=== PATIENT | female | born 1970 | race Caucasian/White ===

== ENCOUNTER 2016-07-27 09:45 | Emergency (ER) | payer BC, OTHER ==
[2016-07-27 10:25] VITALS: BP 140/77
--- NOTE | 2016-07-27 10:44 | UC ---
Respiratory Complaint HPI - HPI Summary HPI Summary: Patient has had a cough for 10 days, denies any other symptoms at this time. - History of Current Complaint Chief Complaint: UCRespiratory Stated Complaint: COUGHING Time Seen by Provider: 07/27/16 10:33 Hx Obtained From: Patient ?: No Onset/Duration: Sudden Onset, Lasting Days Timing: Constant Severity Initially: Mild Severity Currently: Mild Pain Intensity: 3 Pain Scale Used: 0-10 Numeric Character: Cough: Nonproductive Aggravating Factors: Deep Breaths, Recumbent Position Alleviating Factors: Nothing - Allergies/Home Medications Allergies/Adverse Reactions: Allergies Allergy/AdvReac Type Severity Reaction Status Date / Time Penicillins [PCN] Allergy Unknown Unknown Verified 05/04/13 22:19 Reaction Details PMH/Surg Hx/FS Hx/Imm Hx Previously Healthy: Yes Endocrine History Of: Denies: Diabetes, Thyroid Disease Cardiovascular History Of: Denies: Cardiac Disorders, Hypertension, Pacemaker/ICD, Congestive Heart Failure, Deep Vein Thrombosis Respiratory History Of: Denies: COPD, Asthma, Pneumonia, Pulmonary Embolism GI/ History Of: Denies: Gastroesophageal Reflux, Ulcer, Gastrointestinal Bleed, Gall Bladder Disease, Kidney Stones, Renal Disease Neurological History Of: Denies: TIA, CVA, Dementia, Seizures, Migraine Psychological History Of: Reports: Anxiety, Depression, Bipolar Disorder Denies: Schizophrenia Cancer History Of: Denies: Lung Cancer, Breast Cancer Other History Of: Negative For: Anticoagulant Therapy - Surgical History Surgical History: Yes Surgery Procedure, Year, and Place: WISDOM TEETH - Family History Known Family History: Positive: Hypertension - Social History Alcohol Use: Rare Substance Use Type: None Smoking Status (MU): Heavy Every Day Tobacco Smoker - Immunization History Most Recent Tetanus Shot: 2009 Review of Systems Constitutional: Negative Skin: Negative Eyes: Negative ENT: Negative Respiratory: Cough Cardiovascular: Negative Gastrointestinal: Negative Genitourinary: Negative Motor: Negative Neurovascular: Negative Musculoskeletal: Negative Neurological: Negative Psychological: Negative All Other Systems Reviewed And Are Negative: Yes Physical Exam Triage Information Reviewed: Yes Appearance: No Pain Distress, Well-Nourished, Pain Distress Vital Signs: Initial Vital Signs Temp 97.7 F 07/27/16 10:22 Pulse 66 07/27/16 10:22 Resp 18 07/27/16 10:22 BP 140/77 07/27/16 10:22 Pulse Ox 100 07/27/16 10:22 Vital Signs Reviewed: Yes Eye Exam: Normal Eyes: Positive: Conjunctiva Clear ENT Exam: Normal ENT: Positive: Pharyngeal erythema, TMs normal, Muffled/hoarse voice Dental Exam: Normal Neck exam: Normal Respiratory Exam: Normal Respiratory: Positive: Chest non-tender, Normal breath sounds, No respiratory distress, No accessory muscle use, Wheezing, Inspiration Abdominal Exam: Normal Abdomen Description: Positive: Nontender, No Organomegaly, Soft Bowel Sounds: Positive: Present Musculoskeletal Exam: Normal Musculoskeletal: Positive: Strength Intact, ROM Intact, No Edema Neurological Exam: Normal Neurological: Positive: Alert, Muscle Tone Normal Psychological Exam: Normal Skin Exam: Normal UC Diagnostic Evaluation - Laboratory O2 Sat by Pulse Oximetry: 100 Respiratory Course/Dx - Course Course Of Treatment: hx obtained, exam performed, medications reviewed, pharyngeal erythema noted. medications prescribed. - Differential Dx/Diagnosis Differential Diagnosis/HQI/PQRI: Asthma, Bronchitis, Influenza, Laryngitis, Sinusitis Provider Diagnoses: bronchospasm. pharyngitis Discharge - Discharge Plan Condition: Stable Disposition: HOME Prescriptions: Albuterol HFA INHALER* [Ventolin HFA Inhaler*] 1 - 2 puff INH Q4H PRN #1 mdi PRN Reason: Cough predniSONE TAB* [Deltasone TAB*] 40 mg PO DAILY #10 tab Patient Education Materials: Bronchospasm (ED) Additional Instructions: Take the medications as prescribed, increase your fluid intake and get plenty of rest. Ibuprofen and tylenol as neede for pain or fever.
== END 2016-07-27 11:08 | disposition home or self-care (01) ==
LOC: UCEAST 09:45
DX: J98.01 Acute bronchospasm (principal); J02.9 Acute pharyngitis, unspecified; Z88.0 Allergy status to penicillin; F17.210 Nicotine dependence, cigarettes, uncomplicated
CPT/HCPCS: 99212; G0463

== ENCOUNTER 2016-10-21 08:54 | Emergency (ER) | payer BC ==
[2016-10-21 09:10] VITALS: BP 127/77
--- NOTE | 2016-10-21 09:58 | UC ---
UC General HPI - HPI Summary HPI Summary: The patient comes in today for: 1. Hoarse voice, fatigue, diarrhea, malaise "I just don't feel right": Onset: 1 week ago. Palliative/provocative: throat lozenges have helped. Quality: Fatigue Region: Generalized Severity: 0/10 Time: Constant. Associated symptoms: Sore throat: None. Cough: dry. Rhinitis: None. Other's ill around her: NOne. Body aches: None-- Weakness: Present. Fevers: None. LMP: one year ago. * - History of Current Complaint Chief Complaint: UCGeneralIllness Stated Complaint: VOICE/DIARRHEA,NO ENERGY Time Seen by Provider: 10/21/16 09:52 Hx Obtained From: Patient - Allergy/Home Medications Allergies/Adverse Reactions: Allergies Allergy/AdvReac Type Severity Reaction Status Date / Time Penicillins [PCN] Allergy Unknown Unknown Verified 10/21/16 09:10 Reaction Details PMH/Surg Hx/FS Hx/Imm Hx Previously Healthy: No - Right breast mass--being checked. Endocrine History Of: Denies: Diabetes, Thyroid Disease Cardiovascular History Of: Denies: Cardiac Disorders, Hypertension, Pacemaker/ICD, Myocardial Infarction , Congestive Heart Failure, Atrial Fibrillation, Deep Vein Thrombosis, Bleeding Disorders Respiratory History Of: Denies: COPD, Asthma, Pneumonia, Pulmonary Embolism GI/ History Of: Denies: Gastroesophageal Reflux, Ulcer, Gastrointestinal Bleed, Gall Bladder Disease, Kidney Stones, Diverticulitis, Renal Disease, Urosepsis Neurological History Of: Denies: TIA, CVA, Dementia, Seizures, Migraine Psychological History Of: Reports: Anxiety, Depression, Bipolar Disorder Denies: Schizophrenia, Post Traumatic Stress Disorder Cancer History Of: Denies: Lung Cancer, Colorectal Cancer, Breast Cancer, Prostate Cancer, Cervical Cancer Other History Of: Negative For: HIV, Hepatitis B, Anticoagulant Therapy - Surgical History Surgical History: Yes Surgery Procedure, Year, and Place: WISDOM TEETH - Family History Known Family History: Positive: Hypertension, Diabetes Negative: Cardiac Disease - Social History Occupation: Employed Full-time Alcohol Use: Rare Substance Use Type: None Smoking Status (MU): Heavy Every Day Tobacco Smoker - Immunization History Most Recent Influenza Vaccination: 2016 Most Recent Tetanus Shot: 2009 Review of Systems Constitutional: Negative Skin: Negative Eyes: Negative ENT: Negative Respiratory: Negative Cardiovascular: Negative Gastrointestinal: Negative, Diarrhea - She has had about 1 watery stool over the last 24 hours. Genitourinary: Negative All Other Systems Reviewed And Are Negative: Yes Physical Exam Triage Information Reviewed: Yes Appearance: Well-Appearing, No Pain Distress, Well-Nourished Vital Signs: Initial Vital Signs Temp 97.8 F 10/21/16 09:04 Pulse 85 10/21/16 09:04 Resp 18 10/21/16 09:04 BP 127/77 10/21/16 09:04 Pulse Ox 94 10/21/16 09:04 Vital Signs Reviewed: Yes Eyes: Positive: Conjunctiva Clear. Negative: Discharge ENT: Positive: Normal ENT inspection. Negative: Pharynx normal, Pharyngeal erythema, Nasal congestion, Nasal drainage, TM bulging, TM dull, TM red, Tonsillar swelling, Tonsillar exudate Dental: Negative: Gross Decay/Caries @, Dental Fracture @ Neck: Positive: Supple, Nontender, No Lymphadenopathy. Negative: Nuchal Rigidity Respiratory: Positive: Chest non-tender, Lungs clear, No respiratory distress, No accessory muscle use. Negative: Crackles, Wheezing Cardiovascular: Positive: RRR, No Murmur Abdomen Description: Positive: Nontender, No Organomegaly, Soft. Negative: Distended, Guarding Musculoskeletal: Positive: Strength Intact, ROM Intact Neurological: Positive: Alert, Muscle Tone Normal Psychological: Positive: Age Appropriate Behavior, Consolable Skin: Negative: rashes, breakdown Course/Dx - Course Course Of Treatment: Patient was told that her symptoms suggest a viral infection. She was told of her treatment options. - Differential Dx - Multi-Symptom Provider Diagnoses: Viral syndrome. Viral laryngitis Discharge - Discharge Plan Condition: Stable Disposition: HOME Patient Education Materials: Viral Syndrome (ED) Forms: *Work Release Referrals: Traci Gatica MD [Primary Care Provider] - 1 Week (Please see your primary care provider in a week to see how well you are doing. If you get worse, please be seen sooner in the ER or through us.)
== END 2016-10-21 10:20 | disposition home or self-care (01) ==
LOC: UCEAST 08:54
DX: J04.0 Acute laryngitis (principal); B34.9 Viral infection, unspecified; Z72.0 Tobacco use; Z88.0 Allergy status to penicillin
CPT/HCPCS: 99212; G0463

== ENCOUNTER 2016-10-30 07:26 | Emergency (ER) | payer BC ==
[2016-10-30 07:36] VITALS: BP 135/77
[2016-10-30] MEDS ORDERED: Acetaminophen TAB* 325 MG PO ONE (07:55)
[2016-10-30] MEDS ORDERED: Levalbuterol 0.63MG/3ML NEB INH ONE (07:55)
--- NOTE | 2016-10-30 08:07 | UC ---
Aranza Zuniga Salem, scribed for Kate Ram MD on 10/30/16 at 0753 . Respiratory Complaint HPI - HPI Summary HPI Summary: Patient is a 46 y/o female who presents to the with a fever and cough since 1.5-2 weeks ago. She states she was at the following onset and was diagnosed with laryngitis. viral syndrome - 10/21/16. She states sx never improved, but worsened with time. She reports wheezing since last night, non-productive cough , and a fever of unknown onset. She denies nausea, vomiting, pain in the sinuses, or rashes. She reports a sore throat and states that she received a flu shot this year. Pt also with ear congestion. Pt denies encountering anyone who has been sick, or a PMHx of CAD or respiratory illness. She states she took Naprosyn for the pain. She reports she is on antidepressants and is allergic to Penicillin. Pt has a fever of 100.5 upon examination. PT did not know had fevers at home. No h/o asthma, COPD. Pt has previously been on pred and MDI Pt denies being and reports LMP was 1 year ago. Pt reports Tobacco use, 1ppd, but denies EtOH or substance use. Patients medication reviewed this visit. - History of Current Complaint Chief Complaint: UCRespiratory Stated Complaint: SOB Time Seen by Provider: 10/30/16 07:35 Hx Obtained From: Patient Hx Last Menstrual Period: does not get Onset/Duration: Gradual Onset, Lasting Weeks Timing: Constant Severity Initially: Moderate Severity Currently: Moderate Character: Cough: Nonproductive Aggravating Factors: Nothing Alleviating Factors: Nothing Associated Signs And Symptoms: Positive: Fever, Wheezing - Allergies/Home Medications Allergies/Adverse Reactions: Allergies Allergy/AdvReac Type Severity Reaction Status Date / Time Penicillins [PCN] Allergy Unknown Unknown Verified 10/30/16 07:36 Reaction Details PMH/Surg Hx/FS Hx/Imm Hx Previously Healthy: Yes Endocrine History Of: Denies: Diabetes, Thyroid Disease Cardiovascular History Of: Denies: Cardiac Disorders, Hypertension, Pacemaker/ICD, Myocardial Infarction , Congestive Heart Failure, Atrial Fibrillation, Deep Vein Thrombosis, Bleeding Disorders Respiratory History Of: Denies: COPD, Asthma, Pneumonia, Pulmonary Embolism GI/ History Of: Denies: Gastroesophageal Reflux, Ulcer, Gastrointestinal Bleed, Gall Bladder Disease, Kidney Stones, Diverticulitis, Renal Disease, Urosepsis Neurological History Of: Denies: TIA, CVA, Dementia, Seizures, Migraine Psychological History Of: Reports: Anxiety, Depression, Bipolar Disorder Denies: Schizophrenia, Post Traumatic Stress Disorder Cancer History Of: Denies: Lung Cancer, Colorectal Cancer, Breast Cancer, Prostate Cancer, Cervical Cancer Other History Of: Negative For: HIV, Hepatitis B, Anticoagulant Therapy - Surgical History Surgical History: None Surgery Procedure, Year, and Place: WISDOM TEETH - Family History Known Family History: Positive: Hypertension, Diabetes, Other - [place] - father. Negative: Cardiac Disease - Social History Occupation: Employed Full-time Alcohol Use: Rare Substance Use Type: None Smoking Status (MU): Heavy Every Day Tobacco Smoker - 1ppd. Type: Cigarettes Amount Used/How Often: 1 ppd Cessation Counseling: Patient Advised to Stop - Immunization History Most Recent Influenza Vaccination: 2015 Most Recent Tetanus Shot: 2009 Review of Systems Constitutional: Fever Skin: Negative Eyes: Negative ENT: Sore Throat, Ear Ache, Other - hoarseness Respiratory: Shortness Of Breath, Cough - Non-productive., Other - Wheezing. Cardiovascular: Negative Gastrointestinal: Negative Genitourinary: Negative Motor: Negative Neurovascular: Negative Musculoskeletal: Negative Neurological: Negative Psychological: Negative All Other Systems Reviewed And Are Negative: Yes Physical Exam Triage Information Reviewed: Yes Appearance: Ill-Appearing - laryngitis, coarse cough, audible wheeze - speaking full sentences Vital Signs: Initial Vital Signs Temp 100.5 F 10/30/16 07:33 Pulse 118 10/30/16 07:33 Resp 22 10/30/16 07:33 BP 135/77 10/30/16 07:33 Pulse Ox 95 10/30/16 07:33 Vital Signs Reviewed: Yes Eye Exam: Normal Eyes: Positive: Conjunctiva Clear ENT: Positive: Pharynx normal, Nasal congestion, TM dull - right TM with mild fluid - no erythema, no retraction. Negative: Nasal drainage, Tonsillar swelling, Tonsillar exudate Dental Exam: Normal Neck exam: Normal Neck: Positive: Supple, Nontender, No Lymphadenopathy Respiratory Exam: Normal Respiratory: Positive: Chest non-tender, Wheezing, Other: - coarse cough, diffuse wheeze, left middle lung with rhonci Cardiovascular Exam: Normal Cardiovascular: Positive: RRR, No Murmur Abdominal Exam: Normal Abdomen Description: Positive: Nontender, No Organomegaly, Soft Bowel Sounds: Positive: Present Musculoskeletal Exam: Normal Musculoskeletal: Positive: Strength Intact Neurological Exam: Normal Neurological: Positive: Alert, Muscle Tone Normal Psychological Exam: Normal Psychological: Positive: Normal Response To Family Skin Exam: Normal UC Diagnostic Evaluation - Laboratory O2 Sat by Pulse Oximetry: 95 Diagnostic Studies Comment: CXR IMPRESSION: MINIMAL PATCHY AIRSPACE DISEASE OF THE RIGHT LUNG BASE. RECOMMEND FOLLOW-UP UNTIL. RESOLUTION TO EXCLUDE UNDERLYING PULMONARY PARENCHYMAL PATHOLOGY. - Radiology Radiology Interpretation Completed By: Radiologist - CXR IMPRESSION: see above Re-Evaluation - Re-Evaluation First Eval Change: Improved Comment: Informed pt of imaging results. Wheezing resolved throughout. Slight rhonci on right. Pt states she feels better. REviewed with pt plan of care - christine mcdonough, pred. PCP f/u. secretion hygeine. return precautions. Pt declined work note Respiratory Course/Dx - Course Course Of Treatment: PT presents with ongoing head congestion, now with dry cough, wheeze, and fever. PT has taken Naprosyn, but no other meds for sx Pt does smoke 1ppd. Diff: bronchitis, pna, uri. Will check CXR, neb, antipyretic. anticpate MDEfrain, abbuster, pred. Pt comfortable and in agreement with plan - Differential Dx/Diagnosis Provider Diagnoses: pneumonia Discharge - Discharge Plan Condition: Improved Disposition: HOME Prescriptions: Albuterol HFA INHALER* [Ventolin HFA Inhaler*] 1 - 2 puff INH Q4H PRN #1 mdi PRN Reason: wheeze DOXYcycline CAP(*) [DOXYcycline 100MG CAP(*)] 100 mg PO BID #20 cap Spacer/Aerosol-Holding Chamber [Aerochamber/Flowsignal] 1 mis INH Q4HR #1 mis predniSONE TAB* [Deltasone TAB*] 50 mg PO DAILY #5 tab Patient Education Materials: Community Acquired Pneumonia (ED) Referrals: Traci Gatica MD [Primary Care Provider] - Additional Instructions: - STay well hydrated. Drink plenty of non-alcoholic, non-caffinated beverages - take antibiotics 2 times a day as prescribed - USe inhaler - 2 puffs every 4 hours today, then eveyr 4 hours as needed - Take prednisone once daily x 5 days - Okay to use over the counter medication for cough - After you have been on antibiotics for 2 days - change your toothbrush and your pillowcase. These infections are spread by secrtions - do NOT share eating or drinking utensils - clean items you share with other people such as iphone, computer mouse, TV remote, etc - Alternate ibuprofen (Advil, motrin) 600mg and tylenol eveyry 3 hours for pain or fever. Do NOT take ibuprofen if you are taking Naprosyn - Call your doctor on Tuesday to schedule a follow-up appointment. Call your doctor or return with questions or concerns The documentation as recorded by the Aranza dove Salem accurately reflects the service I personally performed and the decisions made by me, Kate Ram MD.
--- NOTE | 2016-10-30 08:28 | RAD ---
HISTORY: Cough, fever, tobacco use COMPARISONS: April 21, 2012 VIEWS: 2: Frontal dual-energy and lateral views of the chest. FINDINGS: CARDIOMEDIASTINAL SILHOUETTE: The cardiomediastinal silhouette is normal. LUCIA: The lucia are normal. PLEURA: The costophrenic angles are sharp. No pleural abnormalities are noted. LUNG PARENCHYMA: There is minimal patchy alveolar opacification of the right lung base ABDOMEN: The upper abdomen is clear. There is no subphrenic gas. BONES AND SOFT TISSUES: No bone or soft tissue abnormalities are noted. OTHER: None. IMPRESSION: MINIMAL PATCHY AIRSPACE DISEASE OF THE RIGHT LUNG BASE. RECOMMEND FOLLOW-UP UNTIL RESOLUTION TO EXCLUDE UNDERLYING PULMONARY PARENCHYMAL PATHOLOGY.
== END 2016-10-30 08:56 | disposition home or self-care (01) ==
LOC: UCEAST 07:26
DX: J18.9 Pneumonia, unspecified organism (principal); F41.9 Anxiety disorder, unspecified; F33.9 Major depressive disorder, recurrent, unspecified; F17.210 Nicotine dependence, cigarettes, uncomplicated; Z88.0 Allergy status to penicillin
CPT/HCPCS: 71020; 99212; A9270-GY; G0463

== ENCOUNTER 2018-04-28 09:58 | Emergency (ER) | payer BC ==
[2018-04-28 10:20] VITALS: BP 144/83
--- NOTE | 2018-04-28 10:28 | UC ---
Complaint Female HPI - HPI Summary HPI Summary: 47 yo female presents with malodorous urine with a pink hue and bladder pressure over the last 3 days. She has had a UTI in the past and this feels the same. She denies fever, chills, abdominal pain, n/v/d/c. Does have some mild right flank pain. No hx of kidney stone - History Of Current Complaint Chief Complaint: UCGU Stated Complaint: URINARY COMPLAINT Time Seen by Provider: 04/28/18 10:27 Hx Obtained From: Patient Hx Last Menstrual Period: 1 year ago Timing: Constant Severity Initially: Moderate Severity Currently: Moderate Pain Intensity: 7 Pain Scale Used: 0-10 Numeric - Allergies/Home Medications Allergies/Adverse Reactions: Allergies Allergy/AdvReac Type Severity Reaction Status Date / Time Penicillins Allergy Unknown Verified 04/28/18 10:20 Reaction Details PMH/Surg Hx/FS Hx/Imm Hx Psychological History: Schizophrenia Other History Of: Negative For: HIV, Hepatitis B, Anticoagulant Therapy - Surgical History Surgical History: None Surgery Procedure, Year, and Place: WISDOM TEETH - Family History Known Family History: Positive: Hypertension, Diabetes, Other - [place] - father. Negative: Cardiac Disease - Social History Occupation: Employed Full-time Lives: With Family Alcohol Use: Occasionally Substance Use Type: None Smoking Status (MU): Heavy Every Day Tobacco Smoker Type: Cigarettes Amount Used/How Often: 1 ppd Length of Time of Smoking/Using Tobacco: 30 years Have You Smoked in the Last Year: Yes - Immunization History Most Recent Influenza Vaccination: 2016 Most Recent Tetanus Shot: 2010 Review of Systems Constitutional: Negative Skin: Negative Respiratory: Negative Cardiovascular: Negative Gastrointestinal: Negative Genitourinary: Dysuria, Hematuria Neurovascular: Negative Neurological: Negative Psychological: Negative All Other Systems Reviewed And Are Negative: Yes Physical Exam - Summary Physical Exam Summary: GENERAL: NAD. WDWN. No pain distress. SKIN: No rashes, sores, lesions, or open wounds. NECK: Supple. Nontender. No lymphadenopathy. CHEST: CTAB. No r/r/w. No accessory muscle use. Breathing comfortably and in no distress. CV: RRR. Without m/r/g. Pulses intact. Cap refill <2seconds ABDOMEN: Soft. NTTP. No distention or guarding. No CVA tenderness. Bowel sounds present NEURO: Alert. PSYCH: Age appropriate behavior. Triage Information Reviewed: Yes Vital Signs: Initial Vital Signs Temp 97.6 F 04/28/18 10:16 Pulse 87 04/28/18 10:16 Resp 18 04/28/18 10:16 BP 144/83 04/28/18 10:16 Pulse Ox 99 04/28/18 10:16 Laboratory Tests 04/28/18 10:28 POC Urine Color Yellow POC Urine Clarity Clear POC Urine pH 5.0 POC Ur Specif [place] 1.020 POC Urine Protein Negative POC Ur Glucose (UA) Negative POC Urine Ketones Negative POC Urine Blood 1+ A POC Urine Nitrite Negative POC Urine Bilirubin Negative POC Urine Urobilinogen 0.2 POC U Leukocyte Esteras Trace A Vital Signs Reviewed: Yes Complaint Female Dx - Course Course Of Treatment: UTI - Differential Dx/Diagnosis Provider Diagnoses: UTI Discharge - Sign-Out/Discharge Documenting (check all that apply): Patient Departure All imaging exams completed and their final reports reviewed: No Studies - Discharge Plan Condition: Stable Disposition: HOME Prescriptions: Sulfamethox/Trimethoprim DS* [Bactrim DS 800/160 TAB*] 1 tab PO BID #10 tab Patient Education Materials: Urinary Tract Infection in Women (DC) Referrals: Traci Gatica MD [Primary Care Provider] - Additional Instructions: If you develop a fever, shortness of breath, chest pain, new or worsening symptoms - please call your PCP or go to the ED. Your blood pressure was high at todays visit. Please see your primary provider within 4 weeks for recheck and re-evaluation. - Billing Disposition and Condition Condition: STABLE Disposition: Home
== END 2018-04-28 10:45 | disposition home or self-care (01) ==
LOC: UCEAST 09:58
DX: N39.0 Urinary tract infection, site not specified (principal); R31.9 Hematuria, unspecified; Z87.440 Personal history of urinary (tract) infections; Z88.0 Allergy status to penicillin; F17.210 Nicotine dependence, cigarettes, uncomplicated
CPT/HCPCS: 81003; 87086; 99212; G0463